=== PATIENT | male | born 1965 | race Caucasian/White ===

== ENCOUNTER 2016-08-13 16:41 | Emergency (ER) | payer BC ==
[2016-08-13 16:57] VITALS: BP 155/98
--- NOTE | 2016-08-13 17:12 | ERNOTE ---
Upper Extremity HPI - General Extremities Pain Location: forearm: left - anterior bruising and tenderness Time Seen by Provider: 08/13/16 17:02 Source: patient Exam Limitations: no limitations - Immun/Allergies/Home Medications Immunizations: IMMUNIZATION HX History of Influenza Vaccine No Hx Pneumococcal Vaccination No Allergies/Adverse Reactions: Allergies Allergy/AdvReac Type Severity Reaction Status Date / Time No Known Allergies Allergy Unverified 08/13/16 16:57 Home Medications: HOME MEDICATIONS Ibuprofen [Motrin] 600 mg PO DAILY 08/13/16 [Last Taken 08/13/16 09:00] - History of Present Illness Narrative: Pt had onset of bruising and tenderness of his left forearm one week ago without known injury. Pt states tenderness and fullness are moving up his arm medially Occurred: last week Severity: mild, moderate Method of Injury: Reports: no apparent injury Associated Symptoms: Denies: tingling, weakness Review of Systems - Review of Systems Constitutional: Present: no symptoms reported EYE: Present: no symptoms reported ENT: Present: no symptoms reported Respiratory: Present: shortness of breath - that is mild and non-specific Cardiology: Absent: chest pain, palpitations Gastrointestinal/Abdominal: Present: no symptoms reported Genitourinary: Present: no symptoms reported Musculoskeletal: Present: back pain - left mid ribs Skin: Present: See HPI, change in color Neurological: Present: no symptoms reported Endocrine: Present: no symptoms reported Hematologic/Lymphatic: Present: no symptoms reported Psych: Present: no symptoms reported - Patient's Past Medical History Patient History - Medical: Anxiety, GERD Patient History - Cardiac/Respiratory: No pertinent hx Patient History - Cancer: No Hx of Cancer - Family History Mother Family History - Medical: No pertinent hx Father Family History - Medical: Alcohol Abuse Family History - Cardiac/Respiratory: History Unknown - Social History Living Situations: home Abuse History: Hx of Substance Use Psych History: Hx of Anxiety Smoking Status: Never smoker Have you smoked in the past 12 months: No Do you dip or chew tobacco: No Alcohol Use: none Drug Use: marijuana - Immunizations Hx Pneumococcal Vaccination: No History of Influenza Vaccine: No Physical Exam - Physical Exam General Appearance: Present: wd/wn, alert, no apparent distress Neck: Present: normal inspection, nontender Respiratory: Present: no respiratory distress, chest nontender, lungs clear Cardiovascular/Chest: Present: regular rate, rhythm, no murmur, normal peripheral pulses Back Exam: Present: muscle spasm - over left 6-7th rib angle Extremity Exam: Present: other - tenderness of left forearm anterior and left upper arm medially with a cord like feeling. Absent: joint redness, joint swelling Neurological Exam: Present: alert, oriented, no motor/sensory deficits Skin Exam: Present: other - bruising in the anterior forearm on the left from just below the wrist almost to the elbow ED Progress - Results and Orders Patient's Lab Results:: I have reviewed the patient's lab results. Results and Orders: Laboratory Tests 08/13/16 08/13/16 17:15 17:15 WBC 9.6 Hgb 13.6 Hct 39.6 L Plt Count 257 D-Dimer 0.67 H - Vital Signs Patient's Vital Signs:: I have reviewed the patient's vital signs. Vital Signs: Vital Signs 08/13/16 16:47 Temperature 36.6 C Pulse Rate 70 Respiratory 20 Rate Blood Pressure 155/98 O2 Sat by Pulse 96 Oximetry - CT/Ultrasound CT/Ultrasound Narrative: Negative for DVT. - Progress/Reassessment Chief Complaint: Upper Extremity Injury/Problem Departure Clinical Impression: Bruising - Departure Disposition: Home self-care Condition: Good Instructions: Contusion, [id number] Additional Instructions: Warm packs to arm 2-3 times a day
[2016-08-13 17:33] LABS: Hematocrit 39.6 % (42.0-52.0); Hemoglobin 13.6 gm/dL (13.5-18.0); Mean Corpuscular Hemoglobin 30.2 pg (27-31); Mean Corpuscular Hgb Conc 34.3 g/dl (32-36); Mean Platelet Volume 10.8 fl (6.0-9.5); Neutrophil # 5.5 K/mm3 (1.3-6.0); Neutrophil % 57.1 % (42-75.0); Platelet Count 257 K/mm3 (150-450); Red Cell Distribution Width 12.1 % (11.5-14.0); White Blood Count 9.6 K/mm3 (4.0-10.5)
--- OUTSIDE RECORDS SUMMARY | 2016-08-13 17:35 | XMS REPORT | Continuity of Care Document ---
:06/29/1963 Author Organization [facility] ([facility]) Address [address] [place] [address] Phone [phone] Care Team Providers Name Role Phone Unavailable Primary Care Provider Unavailable Source Comments This disclosure is being made pursuant to the Care Everywhere program, applicable federal and state laws, and may not contain all informaitonavailable regarding this patient.[facility] ([facility]) Active Allergies and Adverse Reactions Not on File Current Medications Not on file Active Problems Not on file Social History Tobacco Use Types Packs/Day Years Used Date Never Assessed Plan of Care Health Maintenance Due Date Last Done Comments HCV Screening 06/29/1963 Hepatitis B Vaccine (1 of 3 - Primary Series) 06/29/1963 Tdap Vaccine 06/29/1975 Lipid Disorder Screening 06/29/1982 MMR Vaccine 06/29/1982 Td Vaccine 06/29/1982 Colonoscopy 06/29/2014 Prostate Cancer Screening 06/29/2014 Influenza Vaccine: Seasonal (#1) 01/02/2016 Results from Last 3 Months Not on file
== END 2016-08-13 20:00 | disposition home or self-care (01) ==
LOC: ER 16:41
DX: S50.12XA Contusion of left forearm, initial encounter (principal)

== ENCOUNTER 2016-12-03 09:29 | Emergency (ER) | payer BC ==
[2016-12-03 11:03] VITALS: BP 166/109
--- NOTE | 2016-12-03 11:03 | ERNOTE ---
Back Pain ER HPI Date of Service: 12/03/16 Presenting Symptoms: injury/pain to back Time Seen by Provider: 12/03/16 10:38 Source: patient, RN notes reviewed Exam Limitations: no limitations Immunizations: IMMUNIZATION HX History of Influenza Vaccine No Hx Pneumococcal Vaccination No Allergies/Adverse Reactions: Allergies No Known Allergies Allergy (Unverified 08/13/16 16:57) Home Medications: HOME MEDICATIONS Ibuprofen [Motrin] 600 mg PO DAILY 08/13/16 [Last Taken 08/13/16 09:00] Cyclobenzaprine HCl [Flexeril] 10 mg PO TID PRN #30 tab 12/03/16 [Last Taken Unknown] Ibuprofen [Motrin] 800 mg PO TID PRN #30 tab 12/03/16 [Last Taken Unknown] Narrative: 51 y/o male ambulatory to the ED for back pain that began approximately 3 weeks ago. He had similar symptoms on the opposite side several years ago. He denies any injury. He has taken ibuprofen, Vicodin, Percocet, and Tylenol #3 without relief. Timing: Reports: constant Quality/Severity: Reports: severe, aching Location of pain: Reports: lower back, radiating to lf thigh/leg Activities at Onset: Reports: none Recent Injury?: Reports: no Possible Precipitating Factor: Reports: none Associated Symptoms: Denies: fever/chills, sweating, constipation/incontinence, nausea/vomiting, problems urinating, numbess/weakness in legs Prior Treament: Denies: recently seen Review of Systems - Review of Systems Constitutional: Absent: recent illness, fever, chills EYE: Present: no symptoms reported ENT: Present: no symptoms reported Respiratory: Absent: shortness of breath, cough Cardiology: Absent: chest pain, edema Gastrointestinal/Abdominal: Present: See HPI Genitourinary: Absent: dysuria, hematuria Musculoskeletal: Present: back pain. Absent: neck pain, joint pain, joint swelling Skin: Absent: rash, lesions, change in color Neurological: Absent: dizziness/light-headedness, weakness, numbness, tingling Endocrine: Present: no symptoms reported Hematologic/Lymphatic: Present: no symptoms reported Psych: Present: no symptoms reported - Patient's Past Medical History Patient History - Medical: Anxiety, GERD Patient History - Cardiac/Respiratory: No pertinent hx Patient History - Cancer: No Hx of Cancer Patient History - Surgical Procedures: Noncontributory - Family History Mother Family History - Medical: No pertinent hx Father Family History - Medical: Alcohol Abuse Family History - Cardiac/Respiratory: History Unknown - Social History Living Situations: home Abuse History: Hx of Substance Use Psych History: Hx of Anxiety Smoking Status: Former smoker Alcohol Use: none Drug Use: marijuana - Immunizations Hx Pneumococcal Vaccination: No History of Influenza Vaccine: No Physical Exam - Physical Exam General Appearance: Present: wd/wn, alert, mild distress Neck: Present: normal inspection, nontender, supple, full range of motion Respiratory: Present: no respiratory distress, normal breath sounds, no accessory muscle use, lungs clear Cardiovascular/Chest: Present: regular rate, rhythm, no murmur, normal peripheral pulses Back Exam: Present: no CVA tenderness, no vertebral tenderness, decreased range of motion, other - left lumbar paraspinal muscle tenderness with palpation Extremity Exam: Present: normal inspection, normal range of motion, no edema, other - Gait mildly impaired d/t pain Neurological Exam: Present: alert, oriented, normal mood/affect, no motor/ sensory deficits Skin Exam: Present: normal color, warm/dry ED Progress - Vital Signs Patient's Vital Signs:: I have reviewed the patient's vital signs. Vital Signs: Vital Signs 12/03/16 09:49 Temperature 36.1 C L Pulse Rate 67 Respiratory 12 Rate Blood Pressure 141/87 O2 Sat by Pulse 95 Oximetry - Progress/Reassessment Chief Complaint: Back Pain Progress:: Unchanged Plan - Plan Plan: Offered Toradol injection here - patient declined. Discussed consistent use of ibuprofen along with a muscle relaxant and the need for follow up for possible PT or imaging if pain is not improving. Patient does not have a PCP. Departure Clinical Impression: Sciatica of left side - Departure Disposition: Home Follow Up Needed Condition: Stable Instructions: Sciatica, [id number], Back Exercises Additional Instructions: Take ibuprofen routinely with food Can also take Tylenol Muscle relaxant will cause drowsiness Establish with a primary care provider for follow up Prescriptions: Cyclobenzaprine HCl [Flexeril] 10 mg PO TID PRN #30 tab PRN Reason: MUSCLE SPASMS Ibuprofen [Motrin] 800 mg PO TID PRN #30 tab PRN Reason: Pain
== END 2016-12-03 11:10 | disposition home or self-care (01) ==
LOC: ER 09:29
DX: M54.32 Sciatica, left side (principal); Z87.891 Personal history of nicotine dependence

== ENCOUNTER 2017-01-15 15:53 | Emergency (ER) | payer BC ==
[2017-01-15 16:09] VITALS: BP 141/95
[2017-01-15 16:26] LABS: Hematocrit 38.2 % (42.0-52.0); Mean Platelet Volume 10.2 fl (6.0-9.5); Neutrophil % 70.3 % (42-75.0); Platelet Count 265 K/mm3 (150-450); Red Blood Count 4.34 M/mm3 (4.7-6.0)
[2017-01-15 16:28] LABS: Total Cells Counted 100
--- NOTE | 2017-01-15 16:36 | ERNOTE ---
Upper Extremity HPI - Narrative Date of Service: 01/15/17 - General Extremities Pain Location: elbow: right Time Seen by Provider: 01/15/17 16:10 Source: patient Exam Limitations: no limitations - Immun/Allergies/Home Medications Immunizations: IMMUNIZATION HX Immunizations Up to Date Yes History of Influenza Vaccine No Hx Pneumococcal Vaccination No Allergies/Adverse Reactions: Allergies Allergy/AdvReac Type Severity Reaction Status Date / Time No Known Allergies Allergy Unverified 08/13/16 16:57 Home Medications: HOME MEDICATIONS Ibuprofen [Motrin] 600 mg PO DAILY 08/13/16 [Last Taken 08/13/16 09:00] Cyclobenzaprine HCl [Flexeril] 10 mg PO TID PRN #30 tab 12/03/16 [Last Taken Unknown] Ibuprofen [Motrin] 800 mg PO TID PRN #30 tab 12/03/16 [Last Taken Unknown] Prednisone 12/19/16 [Last Taken Unknown] Sulfamethoxazole/Trimethoprim [Bactrim Ds] 1 tab PO BID #28 tab 01/15/17 [Last Taken Unknown] - History of Present Illness Narrative: Pt. comes in with c/o R elbow pain and swelling for a week. Pt. 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 Two days later pt. noticed in shower a swollen reddened lump on his elbow in the shower and noticed drainage and a dark solid piece of material fell from his elbow and slowly over the nest few days became more swollen. Pt. denies any fevers SOB, CP, NVD, recent illness, alleviating factors, aggravating factors, or prehospital treatment before attempting to go to [facility] and being sent here just prior to arrival. Review of Systems - Review of Systems Constitutional: Present: no symptoms reported. Absent: recent illness, fever, chills, weakness, fatigue, malaise EYE: Present: no symptoms reported ENT: Present: no symptoms reported Respiratory: Present: no symptoms reported Cardiology: Present: no symptoms reported Gastrointestinal/Abdominal: Present: no symptoms reported Genitourinary: Present: no symptoms reported Musculoskeletal: Present: joint pain - R elbow Skin: Present: lumps - R elbow, change in color - redness R elbow Neurological: Present: no symptoms reported Endocrine: Present: no symptoms reported All Other Systems: All systems neg except as marked - Patient's Past Medical History Patient History - Medical: Anxiety, Chronic Pain, Depression, GERD Patient History - Cardiac/Respiratory: No pertinent hx Patient History - Cancer: No Hx of Cancer Patient History - Surgical Procedures: Noncontributory Patient History - Other: None - Family History Mother Family History - Medical: No pertinent hx Father Family History - Medical: Alcohol Abuse Family History - Cardiac/Respiratory: History Unknown - Social History Living Situations: home Abuse History: Hx of Substance Use Psych History: Hx of Anxiety, Hx of Depression Smoking Status: Former smoker Have you smoked in the past 12 months: No Do you dip or chew tobacco: No Alcohol Use: none Drug Use: marijuana - Immunizations Immunizations Up to Date: Yes Hx Pneumococcal Vaccination: No History of Influenza Vaccine: No Physical Exam - Physical Exam General Appearance: Present: wd/wn, alert, no apparent distress Head Exam: Present: normal inspection, no evidence of injury Eye Exam: Normal inspection: bilateral, PERRL: bilateral, EOMI: bilateral Respiratory: Present: no respiratory distress, normal breath sounds, no accessory muscle use, chest nontender, lungs clear Cardiovascular/Chest: Present: regular rate, rhythm, no murmur, normal peripheral pulses Extremity Exam: Present: decreased range of motion - extension, joint redness, joint swelling - R elbow outside of joint in soft tissue of skin. Absent: bony tenderness Neurological Exam: Present: alert, oriented, normal mood/affect, no motor/ sensory deficits Skin Exam: Present: normal color, warm/dry, other - scab on R elbow 0.3 cm in diameter. Absent: pallor, skin rash ED Progress - Results and Orders Patient's Lab Results:: I have reviewed the patient's lab results. - Vital Signs Patient's Vital Signs:: I have reviewed the patient's vital signs. Vital Signs: Vital Signs 01/15/17 16:04 Temperature 36.6 C Pulse Rate 96 Blood Pressure 141/95 O2 Sat by Pulse 97 Oximetry - X-Ray X-Ray #1 X-Ray: elbow Interpretation: Reviewed by me X-ray Comments: no acute ossious abnormality. No foreign body. - Progress/Reassessment Chief Complaint: Upper Extremity Injury/Problem Plan - Plan Plan: As there is no fluctuance in the skin and no signs of joint effusion feel that this is regional cellulitis but is moderately severe but uncomplicated as pt. is without fever so will give parental abx here and start on oral abx tomorrow. Departure Clinical Impression: Cellulitis Qualifiers: Site of cellulitis: extremity Site of cellulitis of extremity: upper extremity Laterality: right Qualified Code(s): L03.113 - Cellulitis of right upper limb - Departure Disposition: Home self-care Condition: Good Instructions: Cellulitis, Adult, [id number] Additional Instructions: Please finish all antibiotics and follow up with primary provider in 2-3 days. Prescriptions: Sulfamethoxazole/Trimethoprim [Bactrim Ds] 1 tab PO BID #28 tab
[2017-01-15 16:41] LABS: Albumin * 3.8 gm/dl (3.4-5.0); Anion Gap 15.8 mmol/L (6.8-13.8); BUN/Creatinine Ratio 13.4 (9.0-21.6); Ca. Corrected For Albumin 9.1 mg/dL (8.4-10.2); Calcium * 9.3 mg/dL (7.9-10.9); Carbon Dioxide 30.2 mmol/L (24-32.6); Total Protein 7.4 gm/dL (6.2-8.2)
[2017-01-15 16:42] LABS: Eosinophil 3 % (0-3); Lymphocyte 26 % (20-51); Monocyte 8 % (0-9); Neutrophil 63 % (42-75); Neutrophil # 10.7 K/mm3 (1.3-6.0)
[2017-01-15 16:43] LABS: Platelet Estimate Normal (NORMAL); RBC Morphology Normal (NORMAL)
== END 2017-01-15 17:50 | disposition home or self-care (01) ==
LOC: ER 15:53
DX: L03.113 Cellulitis of right upper limb (principal)